=== PATIENT | female | born 1975 | race Caucasian/White ===

== ENCOUNTER 2022-04-25 14:11 | Outpatient (RCR) | payer OTHER, SELFPAY | END 2022-04-26 23:59 | disposition home or self-care (01) | LOC: CCIC 14:11 | PROVIDERS: PCP Family Medicine; Visit Provider Internal Medicine Hematology & Oncology | DX: C50.911 Malignant neoplasm of unspecified site of right female breast (principal); Z17.0 Estrogen receptor positive status [ER+]; Z79.810 Long term (current) use of selective estrogen receptor modulators (SERMs); N95.2 Postmenopausal atrophic vaginitis; R63.4 Abnormal weight loss | CPT/HCPCS: 99212; 99213; 99214 ==

== ENCOUNTER 2023-01-24 14:15 | Outpatient (RCR) | payer OTHER, SELFPAY ==
[2023-01-27 08:43] LABS: Estradiol Premenol Female <20 pg/mL
[2023-01-27 17:24] LABS: Follicle Stimulating Hormone 50.6 IU/L; Luteinizing Hormone 38.9 IU/L
--- NOTE | 2023-01-31 13:57 | ONC.NURNOTE ---
Discuss[place] patient [place] and she is to stay on her tamoxifen. She is scheduled for another lab draw in 2 months.
== END 2023-03-04 23:59 | disposition home or self-care (01) ==
LOC: CCIC 14:15
PROVIDERS: PCP Family Medicine; Referring Provider Family Medicine; Visit Provider Physician Assistant
DX: C50.911 Malignant neoplasm of unspecified site of right female breast (principal); Z17.0 Estrogen receptor positive status [ER+]; Z79.810 Long term (current) use of selective estrogen receptor modulators (SERMs); N94.10 Unspecified dyspareunia
CPT/HCPCS: 36415; 82670; 83001; 83002; 99212; 99213; 99214; 99215

== ENCOUNTER 2023-05-16 08:30 | Outpatient (RCR) | payer OTHER, SELFPAY ==
[2023-03-29 08:56] LABS: Estradiol Premenol Female <20 pg/mL
[2023-03-29 11:31] LABS: Follicle Stimulating Hormone 51.1 IU/L; Luteinizing Hormone 38.6 IU/L
[2023-05-17 12:45] LABS: Follicle Stimulating Hormone 52.5 IU/L; Luteinizing Hormone 37.8 IU/L
[2023-05-17 12:49] LABS: Estradiol Premenol Female <20 pg/mL
== END 2023-09-24 23:59 | disposition home or self-care (01) ==
LOC: CCIC 08:30
PROVIDERS: Physician Assistant; PCP Family Medicine; Referring Provider Family Medicine; Visit Provider Internal Medicine Hematology & Oncology
DX: C50.911 Malignant neoplasm of unspecified site of right female breast (principal); Z17.0 Estrogen receptor positive status [ER+]; Z79.810 Long term (current) use of selective estrogen receptor modulators (SERMs); Z90.13 Acquired absence of bilateral breasts and nipples; N89.8 Other specified noninflammatory disorders of vagina
CPT/HCPCS: 36415; 82670; 83001; 83002; 99212; 99214

== ENCOUNTER 2024-02-13 12:50 | Outpatient (RCR) | payer OTHER, SELFPAY | END 2024-05-05 23:59 | disposition home or self-care (01) | LOC: CCIC 12:50 | PROVIDERS: Referring Provider Family Medicine; Visit Provider Physician Assistant | DX: C50.911 Malignant neoplasm of unspecified site of right female breast (principal); Z17.0 Estrogen receptor positive status [ER+]; Z79.810 Long term (current) use of selective estrogen receptor modulators (SERMs); Z90.13 Acquired absence of bilateral breasts and nipples; N89.8 Other specified noninflammatory disorders of vagina; R87.810 Cervical high risk human papillomavirus (HPV) DNA test positive | CPT/HCPCS: 99214; 99215; G0463 ==

== ENCOUNTER 2025-02-08 09:50 | Outpatient (RCR) | payer OTHER, SELFPAY | END 2025-02-21 23:59 | disposition home or self-care (01) | LOC: CCIC 09:50 | PROVIDERS: Visit Provider Physician Assistant | DX: C50.911 Malignant neoplasm of unspecified site of right female breast (principal); Z17.0 Estrogen receptor positive status [ER+]; N89.8 Other specified noninflammatory disorders of vagina | CPT/HCPCS: 99213; 99214; G0463 ==